=== PATIENT | male | born 1950 | race Caucasian/White ===

== ENCOUNTER → 2020-04-10 00:16 | Outpatient (CLI) | payer OTHER, SELFPAY ==
[2020-04-10 18:19] LABS: SARS-CoV-2 RNA PCR Negative
== END ==
PROVIDERS: PCP Internal Medicine; Visit Provider Internal Medicine Gastroenterology
DX: Z01.812 Encounter for preprocedural laboratory examination (principal); Z20.822 Contact with and (suspected) exposure to COVID-19
CPT/HCPCS: C9803; U0003; U0005

== ENCOUNTER 2020-04-13 01:08 | Day surgery (SDC) | payer OTHER, SELFPAY ==
[2020-03-20 13:44] VITALS: BMI 29.9
[2020-04-13 07:15] VITALS: BP 158/90; PULSE 76; RESP 18; TEMP 36.9; O2SAT 95
[2020-04-13] MEDS: LACTATED RINGERS 1,000 ML 150 ML IV CONT (07:31)
--- NOTE | 2020-04-13 07:44 | WPDANESEPPF ---
Anes - Initial Pre Proc Eval Procedure: Operation Date: 04/13/20 08:45 Proposed Procedures p Screening Colonoscopy - Keo Marsh MD Date/Time: 04/13/20 07:44 Surgeon: Keo Marsh MD Pre Op Diagnosis: Neoplasm Screening Patient Data Age: 69 Gender: M Height: 5 ft 11 in Weight: 98.5 kg Last Vital Signs Temp 36.9 C 04/13/20 07:15 Pulse 76 04/13/20 07:15 Resp 18 04/13/20 07:15 BP 158/90 H 04/13/20 07:15 Pulse Ox 95 04/13/20 07:15 Allergies Allergy/AdvReac Type Severity Reaction Status Date / Time No Known Allergies Allergy Verified 04/13/20 07:12 Home Medications Medication Instructions Recorded Confirmed Type budesonide-formoterol [Symbicort] 4.5 inh INHALATION PRN PRN 03/20/20 04/13/20 History hydrocodone-acetaminophen 7.5 - 325 tablet PO PRN PRN 03/20/20 03/20/20 History pantoprazole 40 mg PO DAILY 03/20/20 04/13/20 History simvastatin 10 mg PO DAILY 03/20/20 03/20/20 History sodium,potassium,mag sulfates See Rx Instructions .ROUTE 03/20/20 Rx [Suprep Bowel Prep Kit] .COMPLEX #1 ml verapamil 240 mg PO DAILY 03/20/20 04/13/20 History zafirlukast 20 mg PO DAILY 03/20/20 04/13/20 History Patient hx anesthesia problems: none Family hx anesthesia problems: none PMFSH Past Medical History Medical History (Updated 04/13/20 @ 07:47 by Reza North MD) COPD (chronic obstructive pulmonary disease) HTN (hypertension) Hyperlipidemia Obesity Surgical History Surgical History (Updated 04/13/20 @ 07:47 by Reza North MD) H/O colonoscopy Social History Social History Smoking status: Former smoker Tobacco type: cigarettes Alcohol intake: current Drinks per week: 6 Substance use: current Substance use type: marijuana Living arrangements: with family Spiritual care concerns: No Anes - Eval Final PreProcedure Day of Procedure 04/13/20 07:44 Patient weight: obese Heart: regular rate and rhythm Lungs: clear to auscultation Airway: Mallampati scale class II Neurological: alert and oriented Last oral intake: >/= 8 hours ASA classification: III Emergent: no Anesthetic plan: proceed Anesthesia type and monitoring: general GIVS and standard monitoring Informed Consent: The patient's anesthetic plan and its attendant risks and benefits were discussed with the patient/family/POA. Questions were solicited and answers provided to the satisfaction of the patient/family/POA.
--- NOTE | 2020-04-13 08:07 | PM.HPGS ---
History of Present Illness History of Present Illness Consent: Risks, benefits, and alternatives have been discussed and questions answered. Patient agrees to proceed with procedure. Chief complaint: Neoplasm Screening Narrative: Adrien Rider is a 69 year old male with colon polyps 2014 Review of Systems Constitutional: Constitutional: Denies headache(s) and Denies weakness Eyes: Eyes: Denies blurry vision ENT: Reports Normal hearing present, Denies headache(s) and Denies neck pain Cardiovascular: Cardiovascular: Denies chest pain and Denies dyspnea Respiratory: Respiratory: Denies dyspnea Gastrointestinal: Gastrointestinal: Reports no additional gastrointestinal complaints Genitourinary: Genitourinary: Denies dysuria Musculoskeletal: Musculoskeletal: Denies neck pain Integumentary/Breasts: Skin/Breast: Denies dry skin Neurologic: Reports Normal hearing present, Denies headache(s) and Denies weakness Psychiatric: Psychiatric: Denies anxiety Endocrine: Endocrine: Denies change in body appearance Hematologic/Lymphatic: Hematologic/Lymphatic: Denies easy bleeding Allergic/Immunologic: Allergic/Immunologic: Denies urticaria PMF Past Medical History Medical History (Updated 04/13/20 @ 08:07 by Keo Marsh MD) Adenomatous colon polyp COPD (chronic obstructive pulmonary disease) HTN (hypertension) Hyperlipidemia Obesity Surgical History Surgical History (Updated 04/13/20 @ 07:47 by Reza North MD) H/O colonoscopy Social History Social History Smoking status: Former smoker Tobacco type: cigarettes Alcohol intake: current Drinks per week: 6 Substance use: current Substance use type: marijuana Living arrangements: with family Spiritual care concerns: No Meds Home Medications and Allergies Home Medications Medication Instructions Recorded Confirmed Type budesonide-formoterol [Symbicort] 4.5 inh INHALATION PRN PRN 03/20/20 04/13/20 History hydrocodone-acetaminophen 7.5 - 325 tablet PO PRN PRN 03/20/20 03/20/20 History pantoprazole 40 mg PO DAILY 03/20/20 04/13/20 History simvastatin 10 mg PO DAILY 03/20/20 03/20/20 History sodium,potassium,mag sulfates See Rx Instructions .ROUTE 03/20/20 Rx [Suprep Bowel Prep Kit] .COMPLEX #1 ml verapamil 240 mg PO DAILY 03/20/20 04/13/20 History zafirlukast 20 mg PO DAILY 03/20/20 04/13/20 History Allergies Allergy/AdvReac Type Severity Reaction Status Date / Time No Known Allergies Allergy Verified 04/13/20 07:12 Vital Signs Vital Signs - 24 hr 04/13/20 07:15 Temperature 98.4 F Pulse Rate 76 Respiratory Rate 18 Blood Pressure 158/90 H Pulse Oximetry 95 Exam Const: General: comfortable and no acute distress HENMT: General nose exam: Normal nares present Eyes: General: appearance normal, both eyes and all related structures Neck: Neck: no JVD Resp: Auscultation: clear to auscultation bilaterally Cardio: Rate: regular rate Rhythm: regular rhythm GI: Inspection: non-distended GI Palp: Yes Soft to palpation Skin: General skin exam: normal color Neuro: General: gait normal Speech: normal speech Extrem: General: normal to inspection Psych: Mental Status: mental status grossly normal Assessment and Plan Assessment and plan (1) Adenomatous colon polyp: Code(s): D12.6 - Benign neoplasm of colon, unspecified Status: Acute Assessment and Plan: proceed with colonoscopy
[2020-04-13 08:29] VITALS: BP 105/66; PULSE 58; RESP 20; O2SAT 93
[2020-04-13 08:39] VITALS: BP 113/74; PULSE 57; RESP 20; O2SAT 94
[2020-04-13 08:49] VITALS: BP 120/79; PULSE 51; RESP 19; O2SAT 95
== END 2020-04-13 09:05 | disposition home or self-care (01) ==
PROVIDERS: PCP Internal Medicine; Visit Provider Internal Medicine Gastroenterology
PROC: 0DJD8ZZ Inspection of Lower Intestinal Tract, Via Natural or Artificial Opening Endoscopic (ICD-10-PCS; CPT 45378; principal; 2020-04-13 08:45)
DX: Z12.11 Encounter for screening for malignant neoplasm of colon (principal); K57.30 Diverticulosis of large intestine without perforation or abscess without bleeding; K64.8 Other hemorrhoids; Z86.010 Personal history of colon polyps; I10 Essential (primary) hypertension; E78.00 Pure hypercholesterolemia, unspecified; J44.9 Chronic obstructive pulmonary disease, unspecified; E78.5 Hyperlipidemia, unspecified; Z87.891 Personal history of nicotine dependence; F12.90 Cannabis use, unspecified, uncomplicated; E66.9 Obesity, unspecified; Z68.30 Body mass index [BMI] 30.0-30.9, adult
CPT/HCPCS: 45378; C9803; J2001; J2704; J7120; U0003; U0005

== ENCOUNTER 2024-06-05 13:49 | Outpatient (CLI) | payer MEDICARE, SELFPAY ==
--- NOTE | ~2024-06-05 | XR_ITS ---
EXAM/ PROCEDURE: XR lumbar spine 2-3V - 06/05/2024 13:57 CDT HISTORY: 74 years old Male with CHRONIC BACK PAIN W/ LIFTING INJURY X2WK AGO COMPARISON: None available TECHNIQUE: Four view(s) FINDINGS/ IMPRESSION: There are no fractures or dislocations.Multilevel degenerative changes are seen. Atherosclerotic ulce rations are seen. Reviewed, dictated and finalized at location A.
== END 2024-06-05 13:50 | disposition home or self-care (01) ==
LOC: CHSLAB 13:54
PROVIDERS: PCP Internal Medicine; Visit Provider Internal Medicine
DX: M54.50 Low back pain, unspecified (principal); M89.9 Disorder of bone, unspecified
CPT/HCPCS: 72100